=== PATIENT | female | born 1975 | race Caucasian/White ===

== ENCOUNTER 2025-09-11 10:49 | Emergency (ER) | payer OTHER, SELFPAY ==
--- NOTE | 2025-09-11 10:50 | ED.SKABFB ---
HPI - Skin/Abscess/Foreign Bdy General Chief complaint: Skin/Abscess/Foreign Body Stated complaint: Dog Bite Time Seen by Provider: 09/11/25 11:02 Source: patient and RN notes reviewed Mode of arrival: ambulatory Limitations: no limitations History of Present Illness HPI narrative: 50-year-old female presents with concern for a dog bite to her right upper leg. [place] [employer] and someone's dog bit her. She was wearing pants, the teeth did not puncture her pants. She reports puncture wound with bleeding to the right thigh. She was able to get the dog's shot records. It is up-to-date on its vaccinations. She denies any distal decreased strength, sensation range of motion in the joint. MD complaint: other (dog bite) Related Data Allergies Allergy/AdvReac Type Severity Reaction Status Date / Time No Known Allergies Allergy Verified 09/11/25 11:13 Review of Systems Review of Systems: CONSTITUTIONAL: Denies malaise, chills, sweats, or fever. SKIN: Reports dog bite to the right thigh MUSCULOSKELETAL: Denies muscle skeletal pain NEUROLOGIC: Denies numbness, weakness All systems reviewed & are unremarkable except as noted in HPI and below PMFSH Comments At time of signature, agree with nursing past medical, surgical, social and family history. There is no relevant family history pertinent to the presenting complaint Exam Narrative: GENERAL: Well-appearing, well-nourished, and in no acute distress. HEAD: Normocephalic, atraumatic. EYES: PERRLA, conjunctivae clear, and EOMI. ENT: Mucous membranes moist. NECK: Supple. No lymphadenopathy CHEST: Clear to auscultation. No respiratory distress. HEART: Regular rate and rhythm. SKIN: Warm, dry. Scabbed abrasions noted to the right thigh, 1 cm laceration into the subcutaneous tissue noted to the right thigh. Surrounding erythema, edema noted. Small amount of bleeding noted NEURO: Alert and oriented x3. PSYCH: Normal mood and affect Course Course Emergency Course: Patient is aware of diagnosis, understands and agrees to treatment plan. Anticipatory guidance given. Patient agrees to follow-up as directed and is aware of reasons to seek care at the emergency department. Portions of this record may have been created with voice recognition software Level of Care: Express Care Visit Vital Signs Vital signs: Vital Signs Temperature 97.9 F 09/11/25 11:06 Pulse Rate 69 09/11/25 11:06 Respiratory Rate 20 09/11/25 11:06 Blood Pressure 125/87 09/11/25 11:06 Pulse Oximetry 100 09/11/25 11:06 Oxygen Delivery Room Air 09/11/25 11:06 Temperature 97.9 F 09/11/25 11:06 Pulse Rate 69 09/11/25 11:06 Respiratory Rate 20 09/11/25 11:06 Blood Pressure 125/87 09/11/25 11:06 Pulse Oximetry 100 09/11/25 11:06 Oxygen Delivery Room Air 09/11/25 11:06 Reviewed. Procedures Laceration Laceration 1: Date: 09/11/25 Time: 11:35 Site: lower extremity Side (If applicable): right Size (cm): 1 Description: linear Depth: simple, single layer Pre-repair: wound explored and irrigated extensively ====== Skin Level ====== Skin layer closed with: steri strips ====== Subcutaneous Layer ====== ====== Muscle Layer ====== ====== Tendon Layer ====== MDM - Skin/Abscess/Foreign Bdy MDM Narrative Medical decision making narrative: I evaluated this patient in the express care. History is obtained from patient who is an independent historian and physical exam was performed.? Available medical records were reviewed. ? Exam findings and relevant testing show no acute concerns or changes; patient is non-toxic appearing and is in no distress. ? Differential diagnosis and treatment plan were discussed with the patient. Patient agrees with discussion and after shared medical decision making agrees with plan of care. All questions were answered to the patient's satisfaction. Dog bite Laceration was slightly gaping with small amount of active bleeding so is closed with a Steri-Strip. Patient is appropriate for outpatient treatment and follow-up. Critical Care Time Critical Care Time Critical Care Time: No Discharge Plan Discharge Clinical Impression: Dog bite Patient Disposition: Home Condition: Stable Instructions: Animal Bite (ED) Additional Instructions: Keep wound clean, and dry. Apply antibiotic ointment twice daily. Cover with bandage as needed to prevent contamination. Clean with soap and water twice daily, but do not soak, take baths, or swim until wound is completely healed. Do not clean with hydrogen peroxide. If any signs of infection such as redness, swelling, increasing pain, drainage of purulent discharge, streaks up your extremity develop, seek medical attention If you have any urgent concerns please go to the emergency room. Follow-up with your primary care doctor as needed Patient Language: Haitian Follow-up/Referrals: UNKNOWN,DOCTOR [Non-Staff] Time of Disposition: 11:32
[2025-09-11 11:06] VITALS: BP 125/87; PULSE 69; RESP 20; TEMP 36.6; O2SAT 100
== END 2025-09-11 11:42 | disposition home or self-care (01) ==
PROVIDERS: Emergency Provider Nurse Practitioner
DX: S71.111A Laceration without foreign body, right thigh, initial encounter (principal); W54.0XXA Bitten by dog, initial encounter
CPT/HCPCS: 99202; G0463